=== PATIENT | female | born 1980 | race Caucasian/White ===

== ENCOUNTER 2024-04-30 20:40 | Emergency (ER) | payer OTHER, SELFPAY ==
--- NOTE | ~2024-04-30 | US_ITS ---
EXAMINATION: US VENOUS ULTRASOUND WITH DOPPLER LOWER EXTREMITY, BILATERAL CLINICAL INFORMATION: Edema. Pain. COMPARISON: None available. TECHNIQUE: Ultrasound of the deep veins is performed from the hip to the calf with compression sonography and color and pulse Doppler assessment. Spectral analysis with color-flow imaging is performed. FINDINGS: RIGHT: There is normal venous compression and respiratory variation and augmented flow. The visualized common femoral vein, superficial femoral vein, profunda femoral vein, popliteal vein, and the trifurcation region shows no evidence of deep venous thrombosis. There is no significant popliteal fossa cyst. LEFT: There is normal venous compression and respiratory variation and augmented flow. The visualized common femoral vein, superficial femoral vein, profunda femoral vein, popliteal vein, and the trifurcation region shows no evidence of deep venous thrombosis. There is no significant popliteal fossa cyst. If the patient's symptoms persist, followup ultrasound in 5 days 7 days might be of value to exclude proximal propagation from a non-visualized calf vein. US/US venous duplex LE BI IMPRESSION: No DVT demonstrated in the lower extremity.
--- NOTE | 2024-04-30 20:48 | ED.LOWEXIN ---
HPI - Extremity Injury (Lower) General Stated Complaint: leg pain Time Seen by Provider: 04/30/24 20:44 Source: patient Mode of arrival: ambulatory Limitations: no limitations History of Present Illness ED Provider: Dr. Margo Valdovinos HPI Narrative: Patient comes to the emergency room complaining of 1 week of bilateral lower extremity pain and swelling. Patient denies any trauma. However, patient has noticed that over the last couple of days, the swelling and pain gradually increased. Patient concerned for DVTs. Patient denies chest pain or shortness of breath Related Data Allergies Allergy/AdvReac Type Severity Reaction Status Date / Time shellfish derived Allergy Mild rash Verified 04/30/24 22:20 Review of Systems Review of Systems: Constitutional : No Weight loss, No Fever, No Chills, No Night Sweats, No Fatigue, No Malaise ENT/Mouth : No Hearing loss, No Ear Pain, No Nasal Congestion, No Sinus Pain, No Hoarseness, No sore throat, No Rhinorrhea, No Swallowing Difficulty Eyes: No Eye Pain, No Swelling, No Redness, No Foreign Body, No Discharge, No Vision Changes Cardiovascular : No Chest Pain, No SOB, No Dyspnea on Exertion, No Orthopnea, No Edema, No Palpitations Respiratory : No Cough, No Sputum, No Wheezing, No Smoke Exposure, No Dyspnea Gastrointestinal : No Nausea, No Vomiting, No Diarrhea, No Constipation, No abdominal Pain, No Hematochezia, No Melena Genitourinary : no irregular bleeding, No Dysuria, No Urinary Frequency, No Hematuria, No Urinary Incontinence, No Urgency, No Flank Pain, No Urinary Flow Changes, No Hesitancy Musculoskeletal : No joint pain, No Myalgias, complaining of bilateral distal lower extremity edema and pain Skin : No Skin Lesions, No rash Neuro : No Weakness, No Numbness, No Paresthesias, No Loss of Consciousness, No Dizziness, No Headache Psych : No Anxiety/Panic, No Depression, No SI/HI/AH/VH, No Social Issues, Heme/Lymph: No Bruising, No Bleeding,No Lymphadenopathy Endocrine : No Polyuria, No Polydipsia, No Temperature Intolerance [facility] Social History Social History Advance Directives: No Advance Directives Information Provided: No Physical Exam Const: Other: Appearance: Alert. Oriented X3. No acute distress. Eyes: Pupils equal, round and reactive to light. ENT: Pharynx normal. Neck: Normal inspection. Neck supple. No lymph nodes noted. No crepitus CVS: Normal heart rate and rhythm. Pulses normal. Normal S1 and S2 Respiratory: No respiratory distress. Breath sounds normal. No Wheezing. No rales Abdomen: Soft and nontender. No rigidity. No distention. Skin: Skin warm and dry. Normal skin color. Normal skin turgor. Extremities: +1 pitting edema bilaterally, no significant pain to palpation in calves. Neuro: Oriented X 3. No motor deficit. No sensory deficit. Moving all extremities. No slurred speech. CN 2 through 12 grossly intact Psych: calm, cooperative, normal affect Course Course Course Narrative: -lower extremity ultrasound pending to rule out DVT -sign-out given to my colleague Dr. Chato Reis's note on 04/30/2024 at 22:19 I assumed care of this patient from my colleague, Dr. Valdovinos at 21:00 43-year-old female with no significant past medical history who presents emergency department for evaluation of discoloration over her ankles with increased veins over her ankles and calves bilaterally. The patient states that she did have varicose veins after her 20 years prior. She states that over the past 2 weeks she has been running 3 miles a day which is not unusual for her. She has also been weight training and doing squats to her lower extremities. She states that when she was gardening 1 week prior she noticed a discoloration over her ankles and increased varicose veins. She also noticed increased varicose veins to both calves. She was having increased pain in her thighs as well. She has not on any estrogen supplements. 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 She was concerned that she may have DVTs so she presented to the emergency department for evaluation. Exam: General: Awake, alert in no distress Head: Normocephalic, atraumatic EENT: PERRL, Lids normal, sclera normal, conjunctiva normal, nose normal , ears normal, throat without erythema or exudates Lung: breath sounds symmetric, no wheezing, rales or rhonchi Heart: regular rate and rhythm, normal S1, S2 no murmurs or rubs Abdomen: soft, non-tender, nondistended, normal bowel sounds Extremities: The patient does have a slight brawny discoloration over her ankles bilaterally, there are small dilated varicose vein in this region with no clear ecchymosis or petechiae. Superficial varicose veins that are not dilated to her calves bilaterally. She has no calf tenderness her lower extremities appear to be symmetric bilaterally The patient's duplex ultrasound of both lower extremities was negative for DVT. I did discuss this result with the patient. Patient's presentation is consistent with varicose vein not related to DVT but most likely related to increased standing and exercise. Patient was advised to wear compression stockings at work at work. Patient was given verbal and printed instructions and discharged home Discharge Plan Discharge Clinical Impression: Varicose veins of both lower extremities Patient Disposition: Home, Self-Care Additional Instructions: Your examination did reveal mildly dilated varicose veins around your ankle and some very superficial varicose veins in your calves bilaterally. I believe that the pain in your thighs are more related related to your weight training exercises then the varicose vein. Your duplex ultrasound of both lower extremities did not reveal any deep venous thrombosis/blood clots. Wear compression stockings at work and this might help reduce your varicose veins Take ibuprofen 200 mg pills, 1 pill every 6 hours as needed for pain. You can continue running and doing your exercise and if you think that your varicose veins or getting worse then you can follow-up with our vascular surgeon, Dr. Holloway to discuss further treatment. Referrals: Tomi Olson MD [Physician] - 2 weeks (Varicose vein) Print Language: Yakut
[2024-04-30 22:19] VITALS: BP 110/70; PULSE 60; RESP 16; TEMP 37; O2SAT 99; BMI 22.5
[2024-04-30 22:41] VITALS: BP 110/70; PULSE 60; RESP 16; TEMP 37; O2SAT 99
== END 2024-04-30 22:41 | disposition home or self-care (01) ==
PROVIDERS: Emergency Provider Emergency Medicine Emergency Medical Services
DX: I83.893 Varicose veins of bilateral lower extremities with other complications (principal); R60.0 Localized edema; M79.605 Pain in left leg; M79.604 Pain in right leg
CPT/HCPCS: 93970; 99284